=== PATIENT | female | born 1970 | race Two or more races ===

== ENCOUNTER 2017-04-07 08:22 | Emergency (ER) | payer MEDICAID ==
[~2017-04-07] VITALS: Ht 157.5 cm; Wt 59.0 kg
[~2017-04-07 08:22] MED LIST: OLANZAPINE
[2017-04-07] MEDS ORDERED: SODIUM CHLORIDE 0.9% 1,000 ML IV ONE (09:22)
[2017-04-07] MEDS ORDERED: KETOROLAC 30MG/ML VIAL IV STA (09:22)
[2017-04-07] MEDS ORDERED: METHOCARBAMOL 500MG TABLET PO ONE (09:30)
[2017-04-07 12:46] VITALS: BP 98/43
== END 2017-04-07 12:52 | disposition home or self-care (01) ==
LOC: EDBD → ER 08:22
DX: S39.012A Strain of muscle, fascia and tendon of lower back, initial encounter (principal); X50.0XXA Overexertion from strenuous movement or load, initial encounter; X50.9XXA Other and unspecified overexertion or strenuous movements or postures, initial encounter; Y93.89 Activity, other specified; Y92.89 Other specified places as the place of occurrence of the external cause; Y99.8 Other external cause status
CPT/HCPCS: 96361; 96374; 99284; J1885; J7030

== ENCOUNTER 2017-06-18 15:30 | Emergency (ER) | payer MEDICAID ==
[~2017-06-18] VITALS: Ht 157.5 cm; Wt 48.0 kg
[2017-06-18] MEDS ORDERED: LORAZEPAM 2MG/ML CPJ IM ONE (16:45)
[2017-06-18 17:25] LABS: BASOPHILS % 0.3 % (0.0-2.0); EOSINOPHILS % 2.7 % (0.0-5.0); HEMATOCRIT. 31.9 % (36.0-48.0); HEMOGLOBIN. 11.1 g/dL (12.0-16.0); LYMPHOCYTES % 19.4 % (20.0-50.0); MEAN CORPUSCULAR HEMOGLOBIN 29.5 pg (28.0-32.0); MEAN CORPUSCULAR VOLUME 84.8 fL (81.0-99.0); MEAN PLATELET VOLUME 8.2 fl (7.4-10.4); MONOCYTES % 10.9 % (2.0-8.0); NEUTROPHILS % 66.7 % (40.0-76.0); PLATELET 258 x1000/uL (130-400); RED BLOOD CELL COUNT 3.75 mill/uL (4.2-5.4); RED CELL DISTRIBUTION WIDTH 12.6 % (11.6-14.6)
[2017-06-18 17:35] LABS: HCG SCREEN NEGATIVE
[2017-06-18 17:37] LABS: CARBON DIOXIDE 24 mEq/L (21-32); CHLORIDE 107 mEq/L (98-107); TROPONIN I < 0.02 ng/mL (0.00-0.04)
[2017-06-18] MEDS ORDERED: IOHEXOL-350 100 ML BOTTLE ONE (20:27)
[2017-06-18 21:19] VITALS: BP 116/73
== END 2017-06-18 21:22 | disposition home or self-care (01) ==
LOC: ER 16:06 → EDBD 16:06 → ER 21:22
DX: F41.9 Anxiety disorder, unspecified (principal); F15.10 Other stimulant abuse, uncomplicated; R06.02 Shortness of breath
CPT/HCPCS: 36415; 71010; 71275; 80053; 83690; 83880; 84484; 84703; 85025; 85379; 93005; 96372; 99285; J2060; J7030; Q9967

== ENCOUNTER 2017-06-19 16:13 | Emergency (ER) | payer MEDICAID | END 2017-06-19 16:43 | disposition left against medical advice (07) | LOC: ER 16:13 | DX: Z53.21 Procedure and treatment not carried out due to patient leaving prior to being seen by health care provider (principal) ==

== ENCOUNTER 2017-08-15 03:50 | Emergency (ER) | payer MEDICAID ==
[~2017-08-15] VITALS: Ht 165.1 cm; Wt 55.0 kg
[2017-08-15 03:55] VITALS: BP 96/51
[2017-08-15] MEDS ORDERED: FAMOTIDINE 20MG TABLET PO ONE (09:30)
[2017-08-15] MEDS ORDERED: ONDANSETRON 4MG ODT PO ONE (09:30)
[2017-08-15] MEDS ORDERED: ACETAMINOPHEN 500MG TABLET PO ONE (09:30)
[2017-08-15 09:56] LABS: BASOPHILS % 0.2 % (0.0-2.0); EOSINOPHILS % 0.9 % (0.0-5.0); HEMATOCRIT. 34.8 % (36.0-48.0); HEMOGLOBIN. 11.5 g/dL (12.0-16.0); LYMPHOCYTES % 18.8 % (20.0-50.0); MEAN CORPUSCULAR HEMOGLOBIN 26.9 pg (28.0-32.0); MEAN CORPUSCULAR VOLUME 81.8 fL (81.0-99.0); MEAN PLATELET VOLUME 7.8 fl (7.4-10.4); MONOCYTES % 7.1 % (2.0-8.0); PLATELET 365 x1000/uL (130-400); RED BLOOD CELL COUNT 4.25 mill/uL (4.2-5.4); RED CELL DISTRIBUTION WIDTH 14.8 % (11.6-14.6)
[2017-08-15 10:06] LABS: CLARITY URINE CLEAR (CLEAR); COLOR URINE YELLOW (YELLOW); KETONES URINE 3+ (NEGATIVE); LEUKOCYTE ESTERASE URINE NEGATIVE (NEGATIVE); NITRITE URINE NEGATIVE (NEGATIVE); OCCULT BLOOD URINE NEGATIVE (NEGATIVE); PROTEIN URINE NEGATIVE (NEGATIVE); SPECIFIC GRAVITY URINE 1.025 (1.005-1.030); UROBILINOGEN URINE 0.2 E.U./dL (0.2-1.0)
[2017-08-15 10:11] LABS: CARBON DIOXIDE 26 mEq/L (21-32); CHLORIDE 105 mEq/L (98-107)
== END 2017-08-15 12:22 | disposition home or self-care (01) ==
LOC: ER 04:03
DX: R51 Headache (principal); R10.13 Epigastric pain; R03.0 Elevated blood-pressure reading, without diagnosis of hypertension; F15.10 Other stimulant abuse, uncomplicated
CPT/HCPCS: 36415; 80053; 81003; 83690; 85025; 99284; Q0162